=== PATIENT | male | born 1975 | race Caucasian/White ===

== ENCOUNTER → 2019-06-18 | Outpatient (CLI) | payer OTHER | LOC: CAT 15:16 | DX: Z13.6 Encounter for screening for cardiovascular disorders (principal); E78.00 Pure hypercholesterolemia, unspecified; I25.10 Atherosclerotic heart disease of native coronary artery without angina pectoris ==

== ENCOUNTER → 2019-08-23 | Outpatient (CLI) | payer OTHER | LOC: RAD 13:32 | DX: J45.40 Moderate persistent asthma, uncomplicated (principal) ==